=== PATIENT | male | born 1990 | race Caucasian/White ===

== ENCOUNTER 2017-08-13 16:32 | Inpatient (IN) | payer OTHER ==
[~2017-08-13] VITALS: Ht 175.3 cm; Wt 52.6 kg
[2017-08-13] MEDS ORDERED: MIRALAX 17 GM POWD.PACK PO PRN (19:30)
[2017-08-13] MEDS ORDERED: MAGNESIUM HYDROXIDE 30 ML LIQUID UDC PO PRN (19:30)
[2017-08-13] MEDS ORDERED: diphenhydrAMINE 50 MG CAPSULE PO PRN (19:30)
[2017-08-13] MEDS ORDERED: ONDANSETRON 4 MG/2 ML VIAL IM PRN (19:30)
[2017-08-13] MEDS ORDERED: NICOTINE POLACRILEX 4 MG GUM-PK OF TEN BC PRN (19:30)
[2017-08-13] MEDS ORDERED: LORAZEPAM 2 MG/1 ML VIAL IM PRN (19:30)
[2017-08-13] MEDS ORDERED: THIAMINE HCL 200 MG/2 ML VIAL IM ONE (19:30)
[2017-08-13] MEDS ORDERED: CLONIDINE HCL 0.1 MG TABLET PO PRN (19:30)
[2017-08-13] MEDS ORDERED: DICYCLOMINE HCL 20 MG TABLET PO PRN (19:30)
[2017-08-13] MEDS ORDERED: MAG HYDROX/AL HYDROX/SIMETH 30 ML LIQUID UDC PO PRN (19:30)
[2017-08-13] MEDS ORDERED: LORAZEPAM 1 MG TABLET PO PRN ×2 (19:30)
[2017-08-13] MEDS ORDERED: NICOTINE 14 MG/24HR PATCH TD PRN (19:30)
[2017-08-13] MEDS ORDERED: LOPERAMIDE HCL 2 MG CAPSULE PO PRN ×2 (19:30)
[2017-08-13] MEDS ORDERED: LORAZEPAM 1 MG TABLET PO ONE (21:00)
[2017-08-13] MEDS ORDERED: NICO4GUM38 BC (21:08)
[2017-08-13] MEDS ORDERED: DIPH25CA83 PO (21:08)
[2017-08-13] MEDS ORDERED: GUAI100G PO (21:08)
[2017-08-13] MEDS ORDERED: OXYM30MI NS (21:08)
[2017-08-13 21:18] LABS: BASOPHILS % (AUTO) 0.8 % (0.0-2.0); EOSINOPHILS # (AUTO) 0.4 K/uL (0.0-0.7); EOSINOPHILS % (AUTO) 6.7 % (0.0-7.0); HEMATOCRIT 40.7 % (36.7-47.1); HEMOGLOBIN 13.7 g/dL (12.5-16.3); LYMPHOCYTES # (AUTO) 1.3 K/uL (20.0-40.0); LYMPHOCYTES % (AUTO) 22.7 % (20.5-51.5); MEAN CORPUSCULAR HGB CONC 34 g/dL (32.5-36.3); MEAN CORPUSCULAR VOLUME 94.8 fL (73.0-96.2); MONOCYTES # (AUTO) 0.6 K/uL (2.0-10.0); MONOCYTES % (AUTO) 10.7 % (0.0-11.0); NEUTROPHILS # (AUTO) 3.4 K/uL (1.8-8.9); NEUTROPHILS % (AUTO) 59.1 % (38.5-71.5); PLATELET COUNT (AUTO) 189 K/uL (152-348); RED BLOOD CELL COUNT(AUTO) 4.29 MIL/uL (4.06-5.63); WHITE BLOOD COUNT (AUTO) 5.8 K/uL (3.6-10.2)
--- NOTE | 2017-08-13 21:20 | NUR ---
Intake Assessments Px is A&Ox4. Px is ambulatory with steady gait. Speech is clear and audible. Px appears anxious, disheveled, unshaven with dirty finger nails. Px is cooperative during this assessment. VS are as follows BP= 118/72, MN= 91, RR=16, O2sat= 100%, T= 96.5. Px is here for medically supervised withdrawals from Benzos, ETOH and methamphetamine. Px stated "I had seizure last 2012 due to drug withdrawal". Px is allergic to Doxycycline. Px brought some home medications for reconciliation. Admission process will continue in the unit.
[2017-08-13 21:30] LABS: ALANINE AMINOTRANSFERASE 30 U/L (16-63); ALKALINE PHOSPHATASE 62 U/L (50-136); AMYLASE 34 U/L (25-115); ASPARTATE AMINOTRANSFERASE 21 U/L (15-37); BILIRUBIN,TOTAL 0.6 mg/dL (0.2-1.0); CARBON DIOXIDE 28 mmol/L (21-32); CHLORIDE 104 mmol/L (98-107); CREATININE 1.2 mg/dL (0.6-1.3); GLUCOSE 156 mg/dL (74-106); POTASSIUM 4.3 mmol/L (3.5-5.1); TOTAL PROTEIN, SERUM 7.4 g/dL (6.4-8.2); UREA NITROGEN, BLOOD 16 mg/dL (7-18)
[2017-08-13 21:37] LABS: ETHANOL < 3 MG/DL (0-0)
[2017-08-13] MEDS: GABAPENTIN 400 MG CAPSULE PO SCH (21:58)
[2017-08-13 22:00] VITALS: BP 113/73
--- NOTE | 2017-08-13 22:00 | NUR ---
Admission Note Px is 27 y/o male who is being admitted for medically supervised withdrawals from Benzos, ETOH and methamphetamine. Px is intoxicated and not currently experiencing withdrawals. Px appears anxious, disheveled and unkempt. Px has flat affect, poor eye contact and depressed. Px is A&Ox4. Px's speech is clear and audible. Px states that he feels high anxiety, nausea/vomiting, tachycardia, stomach cramps and has panic attacks if he is not using drugs. Px states "I had seizure last 2012 due to withdrawals of using drugs". Px states current substance use as follows: 1. Methamphetamine 2-3 G IV and smoked for 4 mos, last use 08/13/2017 of 0.5 G IV and 0.5 G smoked 2. Xanax 9- 12mg daily PO for 2 years (off and on), last intake 08/13/2017 4 mg PO 3. ETOH- Beer 6 cans daily and [place] 150 ml daily for 2 years, last intake 08/13/2017 2 cans of beer 4. Celexa- 20 mg daily PO for 3 years, last intake 08/11/2017 of 20 mg PO 5. Gabapentin 2400 mg daily PO for 4 years, last intake 08/11/2017 1600 mg PO 6. Soma- 80 mg daily PO for 1 year, last intake 08/11/2017 20 mg PO 7. Kratom- 30 G daily PO for2 years, last intake 08/13/2017 of 12 G PO 8. Phenibut- 8G daily PO for 2 years, last intake 08/13/2017 of 2 G PO Px states that he is seeking tx today to get off of the methamphetamine. Px had multiple detoxes and txs in the past, which the last was in 2016 [facility] in [facility]. Px was able to get sober for 6 mos. in year 2016. Px doesn't know what triggers his relapses. Px states "I dont know how this detox will be different from the past txs". Px states that he has support system, which is his girlfriend and sister of his girlfriend. VS are as follows BP= 113/73, MS= 88, RR=14, O2sat= 99% and T= 97.6. Px has H/A of 6/10. Pulse is regular. Respirations are even and unlabored. Lung chapa are clear. Bowel sounds are active in all quadrants. Skin is intact. Px follows regular diet at home. Px is allergic to Doxycycline. Px's Ht= 5'9" and Wt= 116 lbs. Px smokes 1 pack of cigarettes daily. Pxs PMH includes anxiety, depression, and Bipolar disorder. Px denies hospitalization in the past 30 days. Juan Diego was educated about plan of care including detox, group therapy, individual therapy and D/C planning. Juan Diego was encouraged to be open and honest and verbalized problems to help the team in his recovery.
[2017-08-13 22:08] LABS: *AMPHETAMINE, URINE POSITIVE (NEGATIVE); *BARBITURATE, URINE NEGATIVE (NEGATIVE); *CANNABINOID, URINE NEGATIVE (NEGATIVE); *COCCAINE, URINE NEGATIVE (NEGATIVE); *OPIATE, URINE NEGATIVE (NEGATIVE); *PHENCYCLIDINE SCREEN,URINE NEGATIVE (NEGATIVE)
[2017-08-13] MEDS: IBUPROFEN 600 MG TABLET PO PRN (22:42)
--- NOTE | 2017-08-13 22:42 | NUR ---
PRN Motrin Px complained of H/A at the scale of 6/10. Motrin 600 mg/tab, 1 tab given PO as PRN medication. We'll continue to monitor.
--- NOTE | 2017-08-13 23:42 | NUR ---
Reassessment of H/A Pain was unable to reassess due to the px is asleep. We'll continue to monitor.
[2017-08-14] VITALS: BP 101/66
[2017-08-14 04:00] VITALS: BP 105/67
--- NOTE | 2017-08-14 07:16 | NUR ---
End of Shift Nurse During the shift at 2158, px received VIT B1 injection 100 mg IM and Ativan 2 mg PO as 1x dose. Gabapentin 800 mg given PO as standing order. At 2242, px received Motrin 600 mg PO for H/A of 10/10. Pain was unable to reassess due to the px was asleep. Pxs oral intake is 350 ml, voided 1x, No BM. Slept for 6.5 hours. At 0630, Px is asleep on bed in fowlers position. Bed on lowest position, side rails up 2x, and call light within reach. Last CIWA 8. Px endorsed to AM shift nurse.
--- NOTE | 2017-08-14 07:37 | NUR ---
Pt is 27 y/o male who is admitted for medically supervised withdrawals from Benzos, ETOH and methamphetamine. Pt will start 5 day Ativan taper today. Patient is noted in bed sleeping but easily aroused to verbal stimuli and light touch. Resp even and non labored. Last night PRN given Motrin 600 mg PO for H/A. Pt slept for 6.5 hours. Last noted CIWA 8. Will encourage Pt to attend all group therapies for skills to maintain sobriety. Allergy to Doxycycline, FULL CODE. All safety measures in place. Will continue to monitor for withdrawal symptoms.
[2017-08-14 08:00] VITALS: BP 110/68
[2017-08-14] MEDS: LORAZEPAM 1 MG TABLET PO SCH ×4 (08:23→21:20)
[2017-08-14] MEDS: FOLIC ACID 1 MG TABLET PO SCH (08:23)
[2017-08-14] MEDS: GABAPENTIN 400 MG CAPSULE PO SCH ×4 (08:23→21:20)
[2017-08-14] MEDS: MULTIVITAMINS,THERAPEUTIC TABLET PO SCH (08:23)
[2017-08-14] MEDS: THIAMINE HCL 100 MG TABLET PO SCH (08:24)
[2017-08-14] MEDS: ONDANSETRON ODT 4 MG TAB.RAPDIS SL PRN ×2 (08:24→21:20)
--- NOTE | 2017-08-14 08:25 | NUR ---
PRN ZOFRAN 4 MG TAB PO FOR NAUSEA. NO VOMITING AT THIS TIME.
[2017-08-14] MEDS ORDERED: TUBERCULIN,PURIF.PROT.DERIV. 5 TU/0.1 ML TEST ID ONE (09:00)
--- NOTE | 2017-08-14 09:25 | NUR ---
Reassess ZOFRAN- Pt states nausea slightly improved, still has nausea, no vomiting or diarrhea
[2017-08-14] MEDS: IBUPROFEN 600 MG TABLET PO PRN (10:28)
[2017-08-14] MEDS: METHOCARBAMOL 750 MG TABLET PO PRN ×2 (10:28→21:20)
--- NOTE | 2017-08-14 10:30 | NUR ---
COWS 13- Dr. Aguero wants to measure COWS for Kratom withdrawal as this herb mimics opiate withdrawals, Kratom is an opiate receptor agonist. Dr. Aguero will order Subutex PRN.
--- NOTE | 2017-08-14 10:31 | NUR ---
PRN ATIVAN 2 MG PO FOR CIWA 17 PRN ROBAXIN 750MG PO FOR BODY ACHES PRN MOTRIN 600 MG O FOR HEADACHE AND LEG PAIN
[2017-08-14 12:00] VITALS: BP 117/57
[2017-08-14] MEDS ORDERED: BACLOFEN 10 MG TABLET PO ONE (12:00)
[2017-08-14] MEDS ORDERED: BUPRENORPHINE HCL 2 MG TAB.SUBL SL ONE (12:00)
[2017-08-14] MEDS ORDERED: CLONIDINE HCL 0.1 MG TABLET PO ONE (12:00)
--- NOTE | 2017-08-14 12:00 | NUR ---
Reassess CIWA 11, extra dose Ativan effective.
[2017-08-14 16:00] VITALS: BP 100/66
[2017-08-14] MEDS: KETOROLAC TROMETHAMINE 30 MG INJ IM PRN (16:45)
--- NOTE | 2017-08-14 16:45 | NUR ---
PRN TORADOL 30 MG IM FOR BACK PAIN #9/10 PRN SUBUTEX 4 MG SL FOR COWS 13 PRN SALINE SPRAY BILATERAL NOSTRILS FOR NASAL STUFFINESS
[2017-08-14] MEDS: NORMAL SALINE NASAL 45 ML BOTTLE NS PRN (16:46)
[2017-08-14] MEDS: BUPRENORPHINE HCL 2 MG TAB.SUBL SL PRN (16:47)
--- NOTE | 2017-08-14 17:40 | NUR ---
Reassess Subutex, COWS now 10, Pt states he feels better. Reassess Toradol, pain now #2/10, medication effective. Reassess sailine spray, Pt states nose remains congested, slight improvement.
--- NOTE | 2017-08-14 18:01 | NUR ---
312- End of shift Pt is 27 y/o male who is admitted for medically supervised withdrawals from Benzos, ETOH, Kratom, Phenibut and methamphetamine. Pt started 5 day Ativan taper and PRN Subutex today, tolerating well. Encouraged Pt to verbalize feelings, encouraged to develop coping skills and utilization of non pharmaceutical interventions to maintain sobriety. He attended 1 group therapy today. PRN given today Zofran, Toradol, Subutex, and Ativan. At 1740 last noted CIWA 12, COWS 10. Allergy to Doxycycline, FULL CODE. Adequate PO fluid intake 1200 ml, void X 2, no BM. All safety measures in place. Will continue to monitor for withdrawal symptoms. Endorsed to PM shift.
--- NOTE | 2017-08-14 19:30 | NUR ---
START OF SHIFT NOTE : Pt. is 27 y/o male who admitted for medically supervised withdrawals from Benzos, ETOH and methamphetamine on 08/13/2017. Pt. placed on Ativan taper on 08/14/2017, tolerating well. Pt. is allergic to Doxicycline, Full Code, on Reg. Diet. Last COWS=10 and CIWA=12 at 16:00. PRN Toradol, Zofran, Subutex, NS [place] given as ordered during a day shift. Pt. complains of increased level of anxiety, flashes time to time, difficulty falling and staying asleep. Encouraged patient to participate in group therapies and verbalize feelings. Instructed patient to maintain adequate fluid and nutritional intake. Educated patient regarding the importance of compliance to treatment and medication regime, patient verbalized understanding. Safety measures in place : bed on lowest position with side rails x2 up for safety, all light within reach. Will continue to monitor closely and offer help.
[2017-08-14 20:00] VITALS: BP 100/60
[2017-08-14] MEDS: CLONIDINE HCL 0.1 MG TABLET PO SCH (21:00)
--- NOTE | 2017-08-14 21:00 | NUR ---
PRN VISTARIL, BENADRYL, ZOFRAN, ROBAXIN Pt. complains of difficulty falling asleep, insomnia, increased level of anxiety, muscle spasm, nausea. PRN VISTARIL, BENADRYL, ZOFRAN, ROBAXIN given as ordered. Safety measures in place : bed on lowest position with side rails x2 up for safety, call light within reach. Will continue to monitor closely and offer help.
--- NOTE | 2017-08-14 21:01 | NUR ---
NON ADMINISTERED MEDICATION CATAPRES (VS=[id number])
[2017-08-14] MEDS: FLUTICASONE PROP NASAL SPRAY 16 GM BOTTLE NS SCH (21:16)
[2017-08-14] MEDS: BACLOFEN 10 MG TABLET PO SCH (21:20)
[2017-08-14] MEDS: HYDROXYZINE PAMOATE 25 MG CAPSULE PO PRN (21:20)
--- NOTE | 2017-08-14 22:00 | NUR ---
RE-ASSESSMENT JUANITA ESPINO ZOFRAN, ROBAXIN Pt. is sleeping, RR=16, unlabored and even . Safety measures in place : bed on lowest position with side rails x2 up for safety, call light within reach. Will continue to monitor closely and offer help.
[2017-08-15] VITALS: BP 103/61
--- NOTE | 2017-08-15 06:45 | NUR ---
END OF SHIFT NOTE : Pt. is 27 y/o male who admitted for medically supervised withdrawals from Benzos, ETOH and methamphetamine on 08/13/2017. Pt. placed on Ativan taper on 08/14/2017, tolerating well. Pt. is allergic to Doxicycline, Full Code, on Reg. Diet. CIWA, COWS taken when pt. was awake. Last COWS=9 and CIWA=9 at 04:00. 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 Pt. spent time with other clients till late of the evening. Intake= 591ml, voided x1, slept=9 hours. Safety measures in place : bed on lowest position with side rails x2 up for safety, all light within reach. Will continue to monitor closely and offer help.
--- NOTE | 2017-08-15 07:19 | NUR ---
Start of shift Pt is 27 y/o male who is admitted for medically supervised withdrawals from Benzos, ETOH, Kratom, Phenibut and methamphetamine. Pt started 5 day Ativan taper and PRN Subutex (day 2), tolerating well. Patient is noted in bed sleeping but easily aroused to verbal stimuli and light touch. Resp even and non labored. Encouraged Pt to verbalize feelings, encouraged to develop coping skills and utilization of non pharmaceutical interventions to maintain sobriety. Pt slept 9 hours last night. Last noted CIWA 9, COWS 9. Allergy to Doxycycline, FULL CODE. Adequate PO fluid intake 1200 ml, void X 2, no BM. All safety measures in place. Will continue to monitor for withdrawal symptoms.
[2017-08-15 08:00] VITALS: BP 108/62
[2017-08-15] MEDS: MULTIVITAMINS,THERAPEUTIC TABLET PO SCH (08:41)
[2017-08-15] MEDS: CLONIDINE HCL 0.1 MG TABLET PO SCH ×2 (08:41→21:00)
[2017-08-15] MEDS: GABAPENTIN 400 MG CAPSULE PO SCH ×4 (08:41→21:27)
[2017-08-15] MEDS: BACLOFEN 10 MG TABLET PO SCH ×3 (08:41→21:27)
[2017-08-15] MEDS: THIAMINE HCL 100 MG TABLET PO SCH (08:41)
[2017-08-15] MEDS: CITALOPRAM 20 MG TABLET PO SCH (08:41)
[2017-08-15] MEDS: FOLIC ACID 1 MG TABLET PO SCH (08:41)
[2017-08-15] MEDS: FLUTICASONE PROP NASAL SPRAY 16 GM BOTTLE NS SCH (08:42)
[2017-08-15] MEDS: LORAZEPAM 1 MG TABLET PO SCH ×3 (08:42→21:27)
[2017-08-15 12:00] VITALS: BP 112/65
[2017-08-15 12:06] LABS: HEPATITIS B SURFACE AG Negative (Negative)
[2017-08-15] MEDS: METHOCARBAMOL 750 MG TABLET PO PRN ×2 (12:35→21:28)
[2017-08-15] MEDS: BUPRENORPHINE HCL 2 MG TAB.SUBL SL PRN ×2 (12:35→16:28)
[2017-08-15] MEDS: ACETAMINOPHEN 325 MG TABLET PO PRN (12:35)
--- NOTE | 2017-08-15 12:36 | NUR ---
PRN SUBUTEX 2 MG SL COWS 8 PRN TYLENOL 650 MG PO FOR HEADACHE #8/10 PRN ROBAXIN 750MG PO FOR GENERALIZED BODY ACHES PT STATES HE "FEELS AWFUL"
[2017-08-15] MEDS: ONDANSETRON ODT 4 MG TAB.RAPDIS SL PRN (13:13)
--- NOTE | 2017-08-15 13:16 | NUR ---
PRN medication; Patient is complaining of nausea, PRN Zofran 4mg ODT given to prevent further nausea. Will continue to monitor patient.
--- NOTE | 2017-08-15 13:40 | NUR ---
REASSES TYLENOL PAIN #7/10 REASSES ROBAXIN, STILL HAS BODY ACHES AND SORE MUSCLES, NOT IMPROVED REASSES SUBUTEX COWS REMAINS 8
--- NOTE | 2017-08-15 14:15 | NUR ---
REASSES KEVIN PT STATES NAUSEA IMPROVED, NO EMISIS
[2017-08-15] MEDS: HYDROXYZINE PAMOATE 25 MG CAPSULE PO PRN ×2 (14:22→21:28)
[2017-08-15] MEDS: KETOROLAC TROMETHAMINE 30 MG INJ IM PRN (14:23)
--- NOTE | 2017-08-15 14:28 | NUR ---
PRN TORADOL 30 MG IM FOR HEADACHE AND BACK PAIN #9/10 PRN VISTARIL 25 MG FOR ANXIETY
--- NOTE | 2017-08-15 15:30 | NUR ---
REASSESS TORADOL, PT STATES PAIN NOW #3/10. MEDICATION EFFECTIVE. REASSES VISTARIL, PT STATES HE FEELS LESS ANXIOUS, MEDICATION EFFECTIVE.
[2017-08-15 16:00] VITALS: BP 118/69
--- NOTE | 2017-08-15 16:30 | NUR ---
PRN SUBUTEX 2 MP SL FOR COWS 12 PRN ATIVAN 1 MG PO FOR CIWA 10 PT C/O SEVERE ANXIETY, AGITATION
--- NOTE | 2017-08-15 17:30 | NUR ---
Reasses Subutex, COWS now 9 Reasses Ativan, CIWA now 9 Pt reports feeling "Better"
--- NOTE | 2017-08-15 18:28 | NUR ---
End of shift Pt is 27 y/o male who is admitted for medically supervised withdrawals from Benzos, ETOH, Kratom, Phenibut and methamphetamine. Pt started 5 day Ativan taper and PRN Subutex (day 2), tolerating well. PRN given today Tylenol, Subutex, Ativan, Robaxin, Zofran, and Toradol; were effective. Pt more anxious, irritable, and c/o more pain in the afternoon. Pt was able to shower and shave this afternoon. Pt states he feels better after cleaning up. Appetite poor today. Encouraged Pt to verbalize feelings, encouraged to develop coping skills and utilization of non pharmaceutical interventions to maintain sobriety. Pt did not attend group meetings today. Last noted CIWA 9, COWS 9. Allergy to Doxycycline, FULL CODE. Poor PO fluid intake 2700 ml, void X 5, BM x 1. All safety measures in place. Will continue to monitor for withdrawal symptoms. Endorsed to PM shift.
--- NOTE | 2017-08-15 19:30 | NUR ---
START OF SHIFT NOTE : Pt. is 27 y/o male who admitted for medically supervised withdrawals from Benzos, ETOH and methamphetamine on 08/13/2017. Pt. placed on Ativan taper on 08/14/2017, tolerating well. Pt. is allergic to Doxicycline, Full Code, on Reg. Diet. Last COWS=9 and CIWA=9 at 16:00. PRN Subutex, Tylenol, Robaxin, Toradol, Vistaril, Ativan given as ordered during a day shift. Pt. complains of increased level of anxiety, tremor bilaterally, difficulty falling and staying asleep. Encouraged patient to participate in group therapies and verbalize feelings. Encouraged to independently perform hygiene care. Instructed patient to maintain adequate fluid and nutritional intake. Educated patient regarding the importance of compliance to treatment and medication regime, patient verbalized understanding. Safety measures in place : bed on lowest position with side rails x2 up for safety, all light within reach. Will continue to monitor closely and offer help.
[2017-08-15 20:00] VITALS: BP 108/55
--- NOTE | 2017-08-15 21:00 | NUR ---
PRN VISTARIL, BENADRYL, ROBAXIN Pt. complains of difficulty falling asleep, insomnia, increased level of anxiety, muscle spasm, nausea. PRN VISTARIL, BENADRYL, ROBAXIN given as ordered. Safety measures in place : bed on lowest position with side rails x2 up for safety, call light within reach. Will continue to monitor closely and offer help.
--- NOTE | 2017-08-15 21:00 | NUR ---
NON ADMINISTERED MEDICATION CATAPRES (LD=[id number])
[2017-08-15] MEDS: QUETIAPINE FUMARATE 25 MG TABLET PO PRN (21:28)
--- NOTE | 2017-08-15 23:00 | NUR ---
RE-ASSESSMENT JUANITA ESPINO ROBAXIN Pt. is sleeping, RR=16, unlabored and even . Safety measures in place : bed on lowest position with side rails x2 up for safety, call light within reach. Will continue to monitor closely and offer help.
--- NOTE | 2017-08-16 06:51 | NUR ---
END OF SHIFT NOTE : Pt. is 27 y/o male who admitted for medically supervised withdrawals from Benzos, ETOH and methamphetamine on 08/13/2017. Pt. placed on Ativan taper on 08/14/2017, tolerating well. Pt. is allergic to Doxicycline, Full Code, on Reg. Diet. CIWA, COWS taken when pt. was awake. Last COWS=9 and CIWA=9 at 04:00. PRN SEROQUEL, VISTARIL, ROBAXIN given during a loan funder. Intake= 1000ml, voided x2, slept=6 hours. Safety measures in place : bed on lowest position with side rails x2 up for safety, all light within reach. Will continue to monitor closely and offer help.
[2017-08-16 08:00] VITALS: BP 109/60
--- NOTE | 2017-08-16 08:08 | NUR ---
START OF SHIFT: RECEIVED PT A/O X 4.HE PRESENTS WITH DILATED PUPIL AND PALE COMPLEXION. HE PRESENTS WITH GUARDED AFFECT AND ANXIOUS MOOD. HE REPORTS BODY ACHES ,ANXIETY,RESTLESSNESS AND BACK PAIN 5/10 ON PAIN SCALE. PRN MOTRIN GIVEN ALONG WOTH SCHEDULED MEDS. ATIVAN TAPER IN PROGRESS. CIWA 10. ENCOURAGED INCREASED FLUIDS. WILL MONITOR EFFECTIVENESS OF PRN MEDS.
[2017-08-16] MEDS: CITALOPRAM 20 MG TABLET PO SCH (08:25)
[2017-08-16] MEDS: FOLIC ACID 1 MG TABLET PO SCH (08:25)
[2017-08-16] MEDS: THIAMINE HCL 100 MG TABLET PO SCH (08:25)
[2017-08-16] MEDS: FLUTICASONE PROP NASAL SPRAY 16 GM BOTTLE NS SCH (08:25)
[2017-08-16] MEDS: GABAPENTIN 400 MG CAPSULE PO SCH ×4 (08:26→21:18)
[2017-08-16] MEDS: BACLOFEN 10 MG TABLET PO SCH (08:26)
[2017-08-16] MEDS: IBUPROFEN 600 MG TABLET PO PRN (08:26)
[2017-08-16] MEDS: LORAZEPAM 1 MG TABLET PO SCH ×2 (08:26→12:12)
[2017-08-16] MEDS: CLONIDINE HCL 0.1 MG TABLET PO SCH ×2 (08:26→15:00)
[2017-08-16] MEDS: MULTIVITAMINS,THERAPEUTIC TABLET PO SCH (08:27)
[2017-08-16] MEDS: BUPRENORPHINE HCL 2 MG TAB.SUBL SL PRN (09:00)
--- NOTE | 2017-08-16 09:08 | NUR ---
PT STATES THE PRN MOTRIN DID NOT HELP. ASSESSED COWS AND COWS IS 13. PRN SUBUTEX 4MG SL ADMINISTERED TO MANAGE S/S OF W/D. WILL MONITOR EFFECTIVENESS.
--- NOTE | 2017-08-16 09:35 | NUR ---
PT STATES THE SUBUTEX WAS EFFECTIVE. HE IS LAYING IN BED. COWS 9 WILL CONTINUE TO MONITOR AND PROVIDE SAFE AND SUPPORTIVE ENVIRONMENT.
[2017-08-16] MEDS: DOCUSATE SODIUM 250 MG CAPSULE PO SCH (11:05)
[2017-08-16 12:00] VITALS: BP 108/78
[2017-08-16] MEDS: BACLOFEN 20 MG TABLET PO SCH ×2 (15:00→21:18)
[2017-08-16 16:00] VITALS: BP 108/60
[2017-08-16] MEDS ORDERED: LORAZEPAM 1 MG TABLET PO SCH ×2 (17:00→21:00)
--- NOTE | 2017-08-16 17:42 | NUR ---
1500 MEDS HELD PT IS SLEEPING. RESPIRATIONS EVEN AND UNLABORED. 1600 CIWA AND COWS DEFERRED PT CONTINUES TO SLEEP. 1700 MEDS HELD. Addendum: 08/16/17 at 1826 by LUIS BEST RN 1700 MEDS ADMINISTERED LAT PT AWOKE WANTING THEM. LATE CIWA AND COWS NOTED WELL
[2017-08-16] MEDS: KETOROLAC TROMETHAMINE 30 MG INJ IM PRN (18:22)
--- NOTE | 2017-08-16 19:09 | NUR ---
END OF SHIFT: PT CONTINUES ON ATIVAN TAPER . HE C/O BACK PAIN ,CHILLS,RESTLESS LEGS,SWEATS AND BODY ACHES THIS AM COWS WAS 13 SUBUTEX 4 MG SL GIVEN AND EFFECTIVE. LAST CIWA 8 LAST COWS 7 HE ALSO REPORTED ANXIETY AND DEPRESSION.SZ PRECAUTIONS NOTED. HE DENIES S/I AND H/I. PT SLEPT THIS AFTERNOON AND 1500 MEDS HELD. 1700 MEDS GIVEN LATE. TORADOL IM PRN GIVEN FOR PAIN AND EFFECTIVE. [facility].
--- NOTE | 2017-08-16 19:30 | NUR ---
START OF SHIFT NOTE : Pt. is 27 y/o male who admitted for medically supervised withdrawals from Benzos, ETOH and methamphetamine on 08/13/2017. Pt. placed on Ativan taper on 08/14/2017, tolerating well. Pt. is allergic to Doxicycline, Full Code, on Reg. Diet. Last COWS=7 and CIWA=8 at 16:00. PRN Subutex, Toradol, Vistaril, Motrin given as ordered during a day shift. Pt. complains of increased level of anxiety, flashes, mild body ache, difficulty falling and staying asleep, anhedonia . Encouraged patient to participate in group therapies and verbalize feelings. Encouraged to independently perform hygiene care. Instructed patient to maintain adequate fluid and nutritional intake. Safety measures in place : bed on lowest position with side rails x2 up for safety, all light within reach. Will continue to monitor closely and offer help.
[2017-08-16 20:00] VITALS: BP 107/55
[2017-08-16] MEDS: CLONIDINE HCL 0.2 MG TABLET PO SCH (21:00)
--- NOTE | 2017-08-16 21:00 | NUR ---
PRN VISTARIL, SEROQUEL, ROBAXIN Pt. complains of difficulty falling asleep, insomnia, increased level of anxiety, muscle spasm. PRN VISTARIL, SEROQUEL, ROBAXIN given as ordered. Safety measures in place : bed on lowest position with side rails x2 up for safety, call light within reach. Will continue to monitor closely and offer help.
--- NOTE | 2017-08-16 21:00 | NUR ---
NON ADMINISTERED MEDICATION CATAPRES (IY=[id number])
[2017-08-16] MEDS: HYDROXYZINE PAMOATE 25 MG CAPSULE PO PRN (21:18)
[2017-08-16] MEDS: METHOCARBAMOL 750 MG TABLET PO PRN (21:18)
[2017-08-16] MEDS: QUETIAPINE FUMARATE 25 MG TABLET PO PRN (21:18)
--- NOTE | 2017-08-16 22:00 | NUR ---
RE-ASSESSMENT BIRDIE ESPINO ROBAXIN Pt. is sleeping, RR=16, unlabored and even . Safety measures in place : bed on lowest position with side rails x2 up for safety, call light within reach. Will continue to monitor closely and offer help.
--- NOTE | 2017-08-17 06:54 | NUR ---
END OF SHIFT NOTE : Pt. is 27 y/o male who admitted for medically supervised withdrawals from Benzos, ETOH and methamphetamine on 08/13/2017. Pt. placed on Ativan taper on 08/14/2017, tolerating well. Pt. is allergic to Doxicycline, Full Code, on Reg. Diet. CIWA, COWS taken when pt. was awake. Last COWS=7 and CIWA=8 at 04:00. PRN SEROQUEL, VISTARIL, ROBAXIN given during a scene shifter. Pt. socialized with other clients late in the evening, was in the good mood. Intake= 1170ml, voided x2, slept=8 hours. Safety measures in place : bed on lowest position with side rails x2 up for safety, all light within reach. Will continue to monitor closely and offer help.
--- NOTE | 2017-08-17 07:45 | NUR ---
START OF SHIFT Rcvd endorse from ongoing nurse, client is in room, he is a/o x 4. Client presents with anxious mood, agitated, flat affect, fine tremors, clammy skin, flushed face, and difficulty concentrating. Client reports abdominal cramps, headache, lower back pain, sweats, cold/chills, sense of panic, decreased appetite, restless legs, and fatigue. Client denies suicidal/homicidal ideations. Encourage client to increase PO fluid as tolerated to facilitate detox. Encourage client to attend group therapy. PRN Seroquel 50mg PO for inability to sleep, client slept 8 hrs, PRN Vistaril 50mg PO for anxiety, PRN Robaxin 750mg PO for myalgia, noted effective. Last COWS 7/ CIWA 8 @ 1999. Client is on 5 day Ativan taper (day 4). Call light within reach.
[2017-08-17 08:00] VITALS: BP 95/58
[2017-08-17] MEDS ORDERED: LORAZEPAM 1 MG TABLET PO SCH ×3 (09:00→21:00)
[2017-08-17] MEDS: FLUTICASONE PROP NASAL SPRAY 16 GM BOTTLE NS SCH (09:35)
[2017-08-17] MEDS: NORMAL SALINE NASAL 45 ML BOTTLE NS PRN (09:35)
[2017-08-17] MEDS: BUPRENORPHINE HCL 2 MG TAB.SUBL SL PRN (09:36)
--- NOTE | 2017-08-17 09:36 | NUR ---
PRN Subutex 4mg SL, Tylenol 650mg PO, Toradol 30mg IM administered for CIWA 16, and IVERSON respectively. Call light within reach.
[2017-08-17] MEDS: BACLOFEN 20 MG TABLET PO SCH ×3 (09:37→21:38)
[2017-08-17] MEDS: ACETAMINOPHEN 325 MG TABLET PO PRN (09:37)
[2017-08-17] MEDS: FOLIC ACID 1 MG TABLET PO SCH (09:37)
[2017-08-17] MEDS: THIAMINE HCL 100 MG TABLET PO SCH (09:37)
[2017-08-17] MEDS: KETOROLAC TROMETHAMINE 30 MG INJ IM PRN (09:37)
[2017-08-17] MEDS: MULTIVITAMINS,THERAPEUTIC TABLET PO SCH (09:37)
[2017-08-17] MEDS: CITALOPRAM 20 MG TABLET PO SCH (09:38)
[2017-08-17] MEDS: CLONIDINE HCL 0.1 MG TABLET PO SCH ×2 (09:38→14:25)
[2017-08-17] MEDS: GABAPENTIN 400 MG CAPSULE PO SCH ×4 (09:38→21:39)
[2017-08-17] MEDS: DOCUSATE SODIUM 250 MG CAPSULE PO SCH (09:47)
--- NOTE | 2017-08-17 10:06 | NUR ---
Reassess PRN Subutex 4mg SL, Toradol 30mg IM administered for CIWA 12, and IVERSON decreased pain level from 9/10 to 3/10. Call light within reach.
--- NOTE | 2017-08-17 10:36 | NUR ---
Reassess PRN Tylenol 650mg, client reports relief from IVERSON 0/10 from previous 9/10 pain level.
[2017-08-17] MEDS ORDERED: SUMATRIPTAN SUCCINATE 50 MG TABLET PO PRN (10:45)
[2017-08-17] MEDS: LIDOCAINE 5% PATCH TD SCH (11:48)
[2017-08-17 12:00] VITALS: BP 110/66
[2017-08-17 16:00] VITALS: BP 100/60
--- NOTE | 2017-08-17 19:16 | NUR ---
END OF SHIFT Endorse client to incoming nurse, client is in room, he is a/o x 4. client continues to present depressed, anxious mood, flat affect, fine tremors, clammy skin, flushed face, sweats, cold/chills, sense of panic, decreased appetite, restless legs, and fatigue. Client is not compliant with group therapy due to above withdrawal symptoms. PRN medication administered, see eMAR. Adequate PO fluid intake 1974mL, void x 3, stool x 1. Consumes 50% of meals. Last CIWA @ 1600. Call light within reach.
[2017-08-17 20:00] VITALS: BP 110/65
--- NOTE | 2017-08-17 20:00 | NUR ---
Start of Shift Note Received a 27 y/o male px, admitted for medically supervised withdrawals from Benzos, ETOH, opiate and methamphetamine. Px is placed on modified 6 day Ativan taper with Subutex PRN. Px is tolerating it. Last reported COWS 7 and CIWA 10 by AM shift nurse. During the rounds at 1999, px is asleep on bed in fowlers position. Bed in lowest position, side rails up 2x and call light within reach. We'll continue to monitor.
[2017-08-17] MEDS: CLONIDINE HCL 0.2 MG TABLET PO SCH (21:00)
--- NOTE | 2017-08-17 21:25 | NUR ---
Px woke up Px woke up. Px appears anxious and disheveled. Px state that his anxiety is 6/10, has LBP of 6/10 and H/A of 5/10. We'll continue to monitor.
--- NOTE | 2017-08-17 21:30 | NUR ---
Clonidine refused Px refused to take Clonidine 0.1 mg/tab, 1 tab PO. Px stated "I don't want my BP to get too low". BP= 110/65. We'll continue to monitor.
[2017-08-17] MEDS: QUETIAPINE FUMARATE 25 MG TABLET PO PRN (21:39)
--- NOTE | 2017-08-17 21:39 | NUR ---
PRN Seroquel Px requested for Seroquel. Px was given Seroquel 25 mg/tab, 1 tab PO as PRN for insomnia. We'll continue to monitor.
[2017-08-18] VITALS: BP 101/60
[2017-08-18 04:00] VITALS: BP 105/64
--- NOTE | 2017-08-18 04:00 | NUR ---
COWS and CIWA deferred COWS and CIWA deferred at 0000 and 0400 due to the px is asleep, to assess if the px is awake per doctor's order. We'll continue to monitor.
--- NOTE | 2017-08-18 07:09 | NUR ---
End of Shift Note During the shift at 2138, px received Seroquel 25 mg PO for insomnia. It was effective. At 2129, Clonidine 0.1 mg PO was refused by px scheduled at 2100. Px's oral intake is 100ml, voided 1x, No BM. Px slept for 10.5 hours total. Latest COWS 6 and CIWA 8. At 0630, px is asleep on bed in right side lying position. Bed in lowest position, side rails up 2x and call light within reach. We'll continue to monitor. Px endorsed to AM shift nurse.
[2017-08-18 08:00] VITALS: BP 116/68
[2017-08-18] MEDS: GABAPENTIN 400 MG CAPSULE PO SCH ×4 (08:20→21:16)
[2017-08-18] MEDS: MULTIVITAMINS,THERAPEUTIC TABLET PO SCH (08:20)
[2017-08-18] MEDS: FOLIC ACID 1 MG TABLET PO SCH (08:20)
[2017-08-18] MEDS: DOCUSATE SODIUM 250 MG CAPSULE PO SCH (08:20)
[2017-08-18] MEDS: LORAZEPAM 1 MG TABLET PO SCH ×3 (08:20→21:16)
[2017-08-18] MEDS: CITALOPRAM 20 MG TABLET PO SCH (08:20)
[2017-08-18] MEDS: BACLOFEN 20 MG TABLET PO SCH ×3 (08:20→21:16)
[2017-08-18] MEDS: LIDOCAINE 5% PATCH TD SCH (08:20)
[2017-08-18] MEDS: THIAMINE HCL 100 MG TABLET PO SCH (08:20)
[2017-08-18] MEDS: FLUTICASONE PROP NASAL SPRAY 16 GM BOTTLE NS SCH (08:20)
[2017-08-18] MEDS: CLONIDINE HCL 0.1 MG TABLET PO SCH ×2 (08:23→14:50)
[2017-08-18] MEDS ORDERED: LORAZEPAM 1 MG TABLET PO SCH (09:00)
--- NOTE | 2017-08-18 09:00 | NUR ---
Start of shift note; Received report from night nurse. Patient is a 27 year old male admitted on 08/12/17 for Benzodiazepine/ETOH withdrawals. Patient was placed on a Ativan taper. Patient is AOX4, complaining of diaphoresis, stomach cramps, fatigue, headache and anxiety. Educated patient regarding the importance of compliance to treatment and medication regime, patient verbalized understanding. Encouraged patient to participate in group therapy and activities. All safety measures secured. Will continue to monitor patient.
--- NOTE | 2017-08-18 09:53 | NUR ---
MD order; Patient's current COWS score is 13 manifested by diaphoresis, muscle aches, anxiety, runny nose, stomach cramps, tremors. MD ordered one time dose of Subutex 4mg SL once. MD does not have access to [employer] at this time, order entered on [employer] as ordered. Will continue to monitor for effectiveness of medication.
[2017-08-18] MEDS ORDERED: BUPRENORPHINE HCL 2 MG TAB.SUBL SL ONE (10:00)
--- NOTE | 2017-08-18 10:43 | NUR ---
Re-assessment; Patient 's current COWS score is 8, PRN Subutex noted to be effective.
[2017-08-18] MEDS ORDERED: BUPRENORPHINE HCL 2 MG TAB.SUBL SL PRN ×2 (11:30)
[2017-08-18 12:00] VITALS: BP 107/52
[2017-08-18] MEDS ORDERED: QUET25TA PO (12:53)
[2017-08-18] MEDS ORDERED: DICY20TA28 PO (12:53)
[2017-08-18] MEDS ORDERED: IBUP-1955 PO (12:53)
[2017-08-18] MEDS ORDERED: BACL20TA PO (12:53)
[2017-08-18] MEDS ORDERED: GABA-536 PO (12:53)
[2017-08-18] MEDS ORDERED: CITA20TA19 PO (12:53)
[2017-08-18] MEDS ORDERED: LIDO30AD10 TD (12:53)
[2017-08-18] MEDS ORDERED: CLON0.1T14 PO (12:53)
[2017-08-18] MEDS ORDERED: NICO4GUM38 BC (12:53)
[2017-08-18] MEDS ORDERED: HYDR-3895 PO (12:53)
[2017-08-18 16:00] VITALS: BP 118/62
--- NOTE | 2017-08-18 18:46 | NUR ---
End of shift note; Patient is AOX4, presented with tremors, complaining of fatigue, muscle aches, agitation and anxiety . Patient remained compliant with treatment plan and medication regime. Medications were effective in reducing withdrawal symptoms. Patient's last CIWA score is 6 and COWS score of 6 at 1600. No PRN medications given. Patient participated in group activities and therapies. All safety measures secured. Met all needs.
--- NOTE | 2017-08-18 19:50 | NUR ---
Start of Shift Note Received a 27 y/o male px, admitted for medically supervised withdrawals from Benzos, ETOH, opiate and methamphetamine. Px was placed on modified 6 day Ativan taper with Subutex PRN. Px is tolerating it. Last reported COWS 6 and CIWA 6 by AM shift nurse. During the rounds at 1950, px is awake on bed in fowlers position. Px appears disheveled and unshaven. Unfinished snacks noted on top of the bed side table. Px stated his anxiety is 3/10 and has body aches of 2/10. Px also verbalized "I don't want the Clonidine tonight please." Bed in lowest position, side rails up 2x and call light within reach. We'll continue to monitor.
[2017-08-18 20:00] VITALS: BP 112/64
[2017-08-18] MEDS: CLONIDINE HCL 0.2 MG TABLET PO SCH (21:00)
--- NOTE | 2017-08-18 21:00 | NUR ---
Clonidine refused Px refused to take Clonidine 0.2 mg/tab, 1 tab. BP= 112/64. We'll continue to monitor.
[2017-08-18] MEDS: QUETIAPINE FUMARATE 25 MG TABLET PO PRN (21:16)
--- NOTE | 2017-08-18 21:16 | NUR ---
PRN Seroquel At 2115, px was given Seroquel 25 mg/tab, 1 tab PO as PRN med for insomnia. We'll continue to monitor.
[2017-08-19] VITALS: BP 118/69
[2017-08-19 04:00] VITALS: BP 110/71
--- NOTE | 2017-08-19 07:22 | NUR ---
End of Shift Note During the rounds [id number], px refused to take Clonidine 0.2 mg PO as standing order. BP= 123/80 at 0400. At 2116, px received Seroquel 25 mg PO for insomnia as PRN. Px slept for 7 hours. Pxs oral intake is 400 ml, voided 1x, No BM. At 0630, px is asleep on bed in fowlers position. Bed in lowest position, side rails up 2x and call light within reach. We'll continue to monitor. Px endorsed to AM shift nurse.
--- NOTE | 2017-08-19 07:49 | NUR ---
Start of Shift Notes: Received patient in his room. Patient is a 27 year old male admitted for BZO and Kratom withdrawal placed on a 6-day Ativan taper as ordered. No adverse reactions noted. He is alert and oriented x 4. Verbally responsive. Room appears messy with dirty linen on the floor. He appears disheveled and unkept. Encouraged maintenance of personal hygiene and space. Educated patient on his current plan of care for the day ans his medication regimen. Encouraged oral fluid intake and encouraged group participation to learn new skills to prevent relapse. PRN Seroquel given during the night. Refused Clonidine. Slept for 7 hours. Last COWS 6/CIWA 6. Will continue to monitor.
[2017-08-19 08:00] VITALS: BP 118/79
--- NOTE | 2017-08-19 08:46 | NUR ---
Subutex 2 mg SL given: COWS 10, patient presented with chills/hot flashes, sweating, yawning, anxiety/agitation and piloerection of the skin. Medicated patient with Subutex 2 mg SL as ordered. Will monitor for effectiveness.
[2017-08-19] MEDS: LIDOCAINE 5% PATCH TD SCH (08:47)
[2017-08-19] MEDS: CITALOPRAM 20 MG TABLET PO SCH (08:47)
[2017-08-19] MEDS: GABAPENTIN 400 MG CAPSULE PO SCH ×4 (08:47→21:45)
[2017-08-19] MEDS: THIAMINE HCL 100 MG TABLET PO SCH (08:47)
[2017-08-19] MEDS: MULTIVITAMINS,THERAPEUTIC TABLET PO SCH (08:47)
[2017-08-19] MEDS: DOCUSATE SODIUM 250 MG CAPSULE PO SCH (08:47)
[2017-08-19] MEDS: FOLIC ACID 1 MG TABLET PO SCH (08:47)
[2017-08-19] MEDS: BACLOFEN 20 MG TABLET PO SCH ×3 (08:47→21:45)
[2017-08-19] MEDS: CLONIDINE HCL 0.1 MG TABLET PO SCH ×2 (08:51→14:10)
[2017-08-19] MEDS: FLUTICASONE PROP NASAL SPRAY 16 GM BOTTLE NS SCH (08:54)
[2017-08-19] MEDS ORDERED: LORAZEPAM 1 MG TABLET PO SCH (09:00)
--- NOTE | 2017-08-19 09:16 | NUR ---
Re-assessment: Subutex 2 mg SL COWS 6, less anxiety, no nausea reported and less chills/hot flashes noted.
[2017-08-19 12:00] VITALS: BP 120/68
[2017-08-19] MEDS: KETOROLAC TROMETHAMINE 30 MG INJ IM PRN (13:15)
--- NOTE | 2017-08-19 13:15 | NUR ---
Toradol 30 mg IM given: Patient complained of 8/10 generalized pain related to withdrawal symptoms. Medicated patient with Toradol 30 mg IM as ordered. Will monitor for effectiveness.
--- NOTE | 2017-08-19 13:45 | NUR ---
Re-assessment: Toradol Per patient, PRN Toradol was effective in reducing myalgia. PL 07/10.
[2017-08-19 16:00] VITALS: BP 107/60
--- NOTE | 2017-08-19 19:04 | NUR ---
End of Shift Notes: Patient completed his 6-day modified Ativan taper successfully. Patient tolerated taper well. VS monitored closely. No significant abnormalities noted. Withdrawal symptoms were closely monitored. Initial COWS 10/CIWA 14, patient presented with chills, hot flashes, anxiety/agitation, gross tremors, yawning, myalgia, sweating and nausea. Medicated patient with Subutex 2 mg SL as ordered with help after 30 minutes. Toradol 30 mg IM given at 1315 for complain of myalgia with help after 1 hour. Last COWS 5/CIWA 11. Participated in group and activities. Calm and cooperative with staff and care. All needs met and attended. Will continue to monitor closely.
[2017-08-19 20:00] VITALS: BP 110/73
--- NOTE | 2017-08-19 20:00 | NUR ---
Start of Shift Note Received a 27 y/o male px, admitted for medically supervised withdrawals from Benzos, ETOH, opiate and methamphetamine. Px is to be D/C tomorrow 08/20/2017. Px finished a modified 6 day Ativan taper with Subutex PRN. Px tolerated them. Last reported COWS 5 and CIWA 11 by AM shift nurse. During the rounds at 2000, px is awake in room standing. Px appears disheveled and unshaven. Unfinished snacks noted on top of the bed side table. Px stated "my anxiety right now is 9/10 and I have low back pain of 7/10". Bed in lowest position, side rails up 2x and call light within reach. We'll continue to monitor.
[2017-08-19] MEDS: CLONIDINE HCL 0.2 MG TABLET PO SCH (21:46)
[2017-08-19] MEDS: IBUPROFEN 600 MG TABLET PO PRN (21:46)
--- NOTE | 2017-08-19 21:46 | NUR ---
PRN Motrin Px received Motrin 600 mg/tab, 1 tab PO as PRN med for LBP of 11/09. We'll continue to monitor.
--- NOTE | 2017-08-19 22:50 | NUR ---
Reassessment of LBP Px stated that his pain improved to 5/10. We'll continue to monitor.
[2017-08-20] VITALS: BP 106/58
[2017-08-20 04:00] VITALS: BP 98/56
--- NOTE | 2017-08-20 07:22 | NUR ---
End of Shift Note Px is to be D/C today, 08/20/2017. During the rounds at 2146, px received Motrin 600 mg PO for LBP of 11/09, it was effective. Px's oral intake is 1500 ml, voided 3x, No BM. At 0630, px is asleep on bed in fowlers position. Bed in lowest position, side rails up 2x and call light within reach. We'll continue to monitor. Px endorsed to AM shift nurse.
--- NOTE | 2017-08-20 07:43 | NUR ---
Start of Shift Notes: Received patient in his room. Patient is a 27 year old male admitted for BZO and Kratom withdrawal placed on a 6-day Ativan taper as ordered. No adverse reactions noted. He is alert and oriented x 4. Verbally responsive. Room appears messy with dirty linen on the floor. He appears disheveled and unkept. Encouraged maintenance of personal hygiene and space. Educated patient on his current plan of care for the day ans his medication regimen. Encouraged oral fluid intake and encouraged group participation to learn new skills to prevent relapse. PRN Motrin given during the night. Slept for 7 hours. Last 7/CIWA 9 @ 0400. Will continue to monitor.
[2017-08-20 08:00] VITALS: BP 113/74
[2017-08-20 08:25] VITALS: BP 113/74
[2017-08-20] MEDS: DOCUSATE SODIUM 250 MG CAPSULE PO SCH (08:25)
[2017-08-20] MEDS: CLONIDINE HCL 0.1 MG TABLET PO SCH (08:25)
[2017-08-20] MEDS: BACLOFEN 20 MG TABLET PO SCH (08:25)
[2017-08-20] MEDS: CITALOPRAM 20 MG TABLET PO SCH (08:25)
[2017-08-20] MEDS: FLUTICASONE PROP NASAL SPRAY 16 GM BOTTLE NS SCH (08:26)
[2017-08-20] MEDS: ONDANSETRON ODT 4 MG TAB.RAPDIS SL PRN (08:28)
--- NOTE | 2017-08-20 08:28 | NUR ---
PRN Zofran given per patient c/o nausea with no emesis. Will reassess at 09.
[2017-08-20] MEDS: MULTIVITAMINS,THERAPEUTIC TABLET PO SCH (08:31)
[2017-08-20] MEDS: FOLIC ACID 1 MG TABLET PO SCH (08:31)
[2017-08-20] MEDS: THIAMINE HCL 100 MG TABLET PO SCH (08:32)
[2017-08-20] MEDS: GABAPENTIN 400 MG CAPSULE PO SCH (08:32)
[2017-08-20] MEDS: LIDOCAINE 5% PATCH TD SCH (08:32)
--- NOTE | 2017-08-20 09:28 | NUR ---
DISCHARGE Pt. is in stable condition, v/s WNL, skin is intact, denies s/i and h/i. All discharge paperwork signed and dated. Pt. was discharged from unit @ 0928 on 08/20/17. Pt. left with all belongings, prescriptions, and medications. MD wilkerson.
--- NOTE | 2017-08-20 09:28 | NUR ---
Pt reassessed after PRN Zofran. Pt. states resolution of nausea.
== END 2017-08-20 09:28 | disposition other institution (70) | DRG 895 ==
LOC: SRC 18:44
PROVIDERS: ADMIT Internal Medicine; ATTEND Internal Medicine
PROC: HZ2ZZZZ Detoxification Services for Substance Abuse Treatment (ICD-10-PCS; principal; 2017-08-13)
PROC: HZ41ZZZ Group Counseling for Substance Abuse Treatment, Behavioral (ICD-10-PCS; 2017-08-16)
PROC: HZ31ZZZ Individual Counseling for Substance Abuse Treatment, Behavioral (ICD-10-PCS; 2017-08-16)
DX: F10.232 Alcohol dependence with withdrawal with perceptual disturbance (principal); Z86.74 Personal history of sudden cardiac arrest; F33.1 Major depressive disorder, recurrent, moderate; F13.232 Sedative, hypnotic or anxiolytic dependence with withdrawal with perceptual disturbance; Y90.9 Presence of alcohol in blood, level not specified; F41.0 Panic disorder [episodic paroxysmal anxiety]; Z91.5 Personal history of self-harm; Z88.0 Allergy status to penicillin; Z81.1 Family history of alcohol abuse and dependence; F17.210 Nicotine dependence, cigarettes, uncomplicated; F15.23 Other stimulant dependence with withdrawal; Z79.899 Other long term (current) drug therapy; G47.00 Insomnia, unspecified; F19.239 Other psychoactive substance dependence with withdrawal, unspecified; F11.10 Opioid abuse, uncomplicated; R73.9 Hyperglycemia, unspecified
CPT/HCPCS: 36415; 70030-TC; 80307; 80324; 80346; 83735; 85025; 86580; 86592; 86705; 86803; 87340; 87806; A4663; G0480; J1885; J3411; J3535; Q0162; Q0163